=== PATIENT | male | born 1985 | race Caucasian/White ===

== ENCOUNTER 2020-05-12 19:20 | Emergency (ER) | payer OTHER ==
[~2020-05-12] VITALS: Ht 180.3 cm; Wt 81.6 kg
[2020-05-12 19:20] VITALS: BP 128/78
--- NOTE | 2020-05-12 19:22 | NUR ---
PT AAOX4. BIBSELF C/O R MIDDLE FINGER AVULSION WHILE WASHING DISHES. UNKNOWN TDAP. AWAITING MD FOR EVAL AND ORDERS.
[2020-05-12] MEDS ORDERED: LIDOCAINE 2% 20 ML MDV ONE (19:49)
[2020-05-12] MEDS ORDERED: TDAP [DIPH/PERTUSSIS/TET] 0.5 ML VIAL IM ONE ×2 (19:49→20:00)
--- NOTE | 2020-05-12 19:53 | NUR ---
EMT AT BEDSIDE FOR WOUND CARE. VSS.
[2020-05-12] MEDS ORDERED: LIDOCAINE 2% 20 ML MDV TP ONE (20:00)
--- NOTE | 2020-05-12 20:43 | NUR ---
Patient discharged to home in stable condition. Written and verbal after care instructions given. Patient verbalizes understanding of instruction and RX. Pt ambulated with steady gait, denies pain. vss.
== END 2020-05-12 22:33 | disposition home or self-care (01) ==
LOC: ER 19:26
DX: S61.212A Laceration without foreign body of right middle finger without damage to nail, initial encounter (principal); W26.0XXA Contact with knife, initial encounter; Y93.G1 Activity, food preparation and clean up; Y92.89 Other specified places as the place of occurrence of the external cause; Y99.8 Other external cause status
CPT/HCPCS: 12002; 90471; 90715; 99283; J3490